=== PATIENT | male | born 1950 | race Caucasian/White ===

== ENCOUNTER 2020-06-28 11:04 | Day surgery (SDC) | payer MEDICARE, OTHER ==
[2020-06-28] MEDS ORDERED: Betamethasone Acetate/Betamethasone Sod Phosphate 30 MG/5 ML MDV EPIDUR ONE (12:30)
[2020-06-28] MEDS ORDERED: Ropivacaine 0.5% 5 MG/ML 30 ML SDV INJECT ONE (12:30)
[2020-06-28] MEDS ORDERED: Lidocaine 2% 5 ML SDV INJECT ONE (12:30)
[2020-06-28] MEDS ORDERED: Iopamidol 200-M 10 ML vial ITHECAL ONE (12:30)
--- NOTE | 2020-06-28 20:15 | OR ---
SURGEON: Karyna Worthy D.O. DATE OF PROCEDURE: 06/28/2020 PRIMARY SURGEON: Karyna Worthy DO ASSISTANTS: OR staff present: 1. Shakira Delgadillo RN. 2. Dolly Frost RN. 3. Artis Alvarez, RT. PREOPERATIVE DIAGNOSES: 1. Thoracic back pain. 2. Lumbar back pain. 3. Thoracic T10-11 compression fracture. 4. Thoracic facet arthropathy, T12-L1. 5. Lumbar facet arthropathy, L1-L2. POSTOPERATIVE DIAGNOSES: 1. Thoracic back pain. 2. Lumbar back pain. 3. Thoracic T10-11 compression fracture. 4. Thoracic facet arthropathy, T12-L1. 5. Lumbar facet arthropathy, L1-L2. PROCEDURES PERFORMED: 1. T12-L1 facet joint injection, bilateral. 2. L1-L2 facet joint injection, bilateral. 3. Fluoroscopic guidance for needle placement. 4. Local with oral Valium for sedation. SCREENING QUESTIONS: The patient answered "No" to all the following questions: 1. Are you allergic to iodine, Betadine or latex? 2. Do you have a bleeding disorder? 3. Are you on anti-inflammatories or blood thinners? 4. Do you have any current local or systemic infections? DESCRIPTION OF PROCEDURE: The patient had the procedure thoroughly explained including risks, benefits and alternatives. Consent was signed in my clinic indicating understanding and willingness to proceed. The patient presented to [facility] and was escorted to the dressing room to disrobe and change into a hospital gown. Preoperative history and screening were performed by my nurse. Vital signs were taken and stable. The patient reported that Valium 10 milligrams was taken prior to the procedure. The patient was brought back to the procedure room and placed in the prone position on the procedure room table. A pillow was placed under the abdomen in order to flatten the lumbar lordosis. The back was prepped with ChloraPrep and sterilely draped. All personnel in the procedure room were dressed in appropriate attire including surgical scrubs, head and shoe covers. This was to ensure sterility while in the treatment room. During the time fluoroscopy was in use all personnel in the operating room wore lead llanes with thyroid collars. Sterile technique was used during the procedure. Then the fluoroscope was positioned to provide a right oblique view for the right T12-L1 facet injection. This was begun by anesthetizing the skin and soft tissues. The fluoroscope was positioned and a sterile 22-gauge 3.5 inch needle was placed at the junction of the ear of the le[place] dog for the facet injection. Precise needle placement was confirmed by fluoroscopy . AP and oblique views. Then 0.2 cubic centimeters of IsoVue-200 contrast dye was injected through microbore tubing under live fluoroscopy and showed no intravascular flow pattern and adequate flow over the target medial branch. After negative aspiration, 1.0 cubic centimeters of clelstone and0.5% Ropivacaine was injected without complications. The fluoroscope was positioned to provide a left oblique view for the left T12-L1 facet injection as above without complications The fluoroscope was then positioned to provide a right oblique view for the L1/L2 facet joint injection. This was begun by anesthetizing the skin and soft tissues. Then using fluoroscopic guidance, a sterile 22-gauge 3.5 inch spinal needle was positioned at the right L1-L2 facet joint at the " ear of the [place] dog". Precise needle placement was confirmed by fluoroscopy in AP and oblique views, and 0.2 cubic centimeters of IsoVue-200 contrast dye was injected through microbore tubing under live fluoroscopy and showed no intravascular flow pattern and adequate flow over the target . After negative aspiration, 1.0 cubic centimeters of a mixture of Celestone and 0.5% Ropivacaine was injected. No complications were noted.The fluoroscope was positioned to provide a left oblique view for the left L1-L2 facet joint injection as above. The procedures were well tolerated and vital signs were stable during and after the procedure. The staff escorted the patient to the recovery area. The patient was given both oral and written discharge and followup instructions. The patient will follow up with a pain diary which will be evaluated over this evening doing things that would normally cause pain. We will evaluate the efficacy of the diagnostic lumbar medial branch blocks as the patient will follow up in the clinic the next day. The patient was given both oral and written discharge and followup instructions. The patient voiced understanding including understanding of those signs and symptoms that would require emergency care and knows how to contact the office if there are any questions or concerns in the meantime. PREOPERATIVE PAIN: 02/13. POSTOPERATIVE PAIN: 10/16. FOLLOWUP: In the Pain Clinic in 3 weeks. HOGLCHR / MODL /[id number] GAGANDEEP
== END 2020-06-28 13:42 ==
LOC: MW.SDS 11:04
PROVIDERS: ATTEND Anesthesiology
DX: S22.080A Wedge compression fracture of T11-T12 vertebra, initial encounter for closed fracture (principal); M51.16 Intervertebral disc disorders with radiculopathy, lumbar region; M79.18 Myalgia, other site; M47.26 Other spondylosis with radiculopathy, lumbar region; M47.814 Spondylosis without myelopathy or radiculopathy, thoracic region; K21.9 Gastro-esophageal reflux disease without esophagitis; F17.210 Nicotine dependence, cigarettes, uncomplicated; Z79.899 Other long term (current) drug therapy; W20.8XXA Other cause of strike by thrown, projected or falling object, initial encounter

== ENCOUNTER 2020-08-16 11:06 | Day surgery (SDC) | payer MEDICARE, OTHER ==
[2020-08-16] MEDS ORDERED: Iopamidol 200-M 10 ML vial ITHECAL ONE (12:00)
[2020-08-16] MEDS ORDERED: Lidocaine 2% 5 ML SDV INJECT ONE (12:00)
[2020-08-16] MEDS ORDERED: Ropivacaine 0.5% 5 MG/ML 30 ML SDV INJECT ONE (12:00)
[2020-08-16] MEDS ORDERED: Betamethasone Acetate/Betamethasone Sod Phosphate 30 MG/5 ML MDV EPIDUR ONE (12:00)
--- NOTE | 2020-08-16 15:16 | OR ---
SURGEON: Karyna Worthy D.O. DATE OF PROCEDURE: 08/16/2020 PRIMARY SURGEON: Karyna Worthy DO ASSISTANTS: OR staff present: 1. Ambreen Peters RN. 2. Eboni Randhawa RN. 3. RT Stewart. WOUND CLASS: I. PREOPERATIVE DIAGNOSES: 1. Lumbar facet arthropathy. 2. Thoracic facet arthropathy. 3. Chronic back pain. POSTOPERATIVE DIAGNOSIS: 1. Lumbar facet arthropathy. 2. Thoracic facet arthropathy. 3. Chronic back pain. PROCEDURES PERFORMED: 1. Right T12-L1 facet joint injection. 2. Left T12-L1 facet joint injection. 3. Right L1-L2 facet joint injection. 4. Left L1-L2 facet joint injection. 5. Fluoroscopic guidance for needle placement. 6. Local with oral Valium for sedation. SCREENING QUESTIONS: The patient answered "No" to all the following questions: 1. Are you allergic to iodine, Betadine or latex? 2. Do you have a bleeding disorder? 3. Are you on anti-inflammatories or blood thinners? 4. Do you have any current local or systemic infections? MEDICAL NECESSITY: This is a patient with chronic low back pain who comes in for the above diagnostic procedure. This procedure is being performed in accordance with national guidelines written by the [employer]; please see medical necessity note in chart. DESCRIPTION OF PROCEDURE: The patient had the procedure thoroughly explained including risks, benefits and alternatives. Consent was signed in my clinic indicating understanding and willingness to proceed. The patient presented to [facility] and was escorted to the dressing room to disrobe and change into a hospital gown. Preoperative history and screening were performed by my nurse. Vital signs were taken and stable. The patient reported that Valium 10 milligrams was taken prior to the procedure. The patient was brought back to the procedure room and placed in the prone position on the procedure room table. A pillow was placed under the abdomen in order to flatten the lumbar lordosis. The back was prepped with ChloraPrep and sterilely draped. All personnel in the procedure room were dressed in appropriate attire including surgical scrubs, head and shoe covers. This was to ensure sterility while in the treatment room. During the time fluoroscopy was in use all personnel in the operating room wore lead llanes with thyroid collars. Sterile technique was used during the procedure. Then the fluoroscope was positioned to provide a right oblique view for the right T12- L1 facet joint injection. This was begun by anesthetizing the skin and soft tissues. The fluoroscope was positioned and a sterile 22-gauge 3.5 inch needle was placed at the junction of the "ear of the [place] dog" for the facet joint injection. Precise needle placement was confirmed by fluoroscopy and with0.2 cubic centimeters of IsoVue-200 contrast dye was injected through microbore tubing under live fluoroscopy and showed no intravascular flowpattern and adequate flow over the target. After negative aspiration, 1.0 cubic centimeters of Celestone and 0.5% Ropivacaine was injected without complications. the procedure was repeated as above for the left T12-L1 facet joint injection. The fluoroscope was then positioned to provide a right in the left L1-L2 facet joint injection. This was begun by anesthetizing the skin and soft tissues. Then using fluoroscopic guidance, a sterile 22-gauge 3.5 inch spinal needle was positioned at the right "ear of the Abdulaziz dog " for the right L1-L2 facet joint injection. Precise needle placement was confirmed by fluoroscopy in AP and oblique views, and with 0.2 cubic centimeters increments of IsoVue-200 contrast dye that was injected through microbore tubing under live fluoroscopy and showed no intravascular flow pattern and adequate flow over the target facet joint. After negative aspiration, 0.5 cubic centimeters of ,celestone and 0.5% Ropivacaine was injected. No complications were noted. Then the procedure was repeated on the left or the L1-L2 facet joint injection as above. The procedures were well tolerated and vital signs were stable during and after the procedure. The staff escorted the patient to the recovery area. The patient was given both oral and written discharge and followup instructions. The patient will follow up with a pain diary which will be evaluated over this evening doing things that would normally cause pain. The patient was given both oral and written discharge and followup instructions. The patient voiced understanding including understanding of those signs and symptoms that would require emergency care and knows how to contact the office if there are any questions or concerns in the meantime. PREOPERATIVE PAIN: 02/13. POSTOPERATIVE PAIN: 10/16. FOLLOWUP: In the Pain Clinic in 1 month. HOGLCHR / MODL /[id number] GAGANDEEP
== END 2020-08-16 12:55 ==
LOC: MW.SDS 11:06
PROVIDERS: ATTEND Anesthesiology
DX: G89.29 Other chronic pain (principal); M47.26 Other spondylosis with radiculopathy, lumbar region; M47.814 Spondylosis without myelopathy or radiculopathy, thoracic region; S22.080A Wedge compression fracture of T11-T12 vertebra, initial encounter for closed fracture; M51.16 Intervertebral disc disorders with radiculopathy, lumbar region; M79.18 Myalgia, other site; F17.210 Nicotine dependence, cigarettes, uncomplicated; Z79.899 Other long term (current) drug therapy; Z98.890 Other specified postprocedural states
CPT/HCPCS: 64490; 64493; J0702; J2001; J2795; Q9966